=== PATIENT | female | born 1970 | race Caucasian/White ===

== ENCOUNTER 2020-04-03 18:39 | Emergency (ER) | payer OTHER ==
[~2020-04-03] VITALS: Ht 162.6 cm; Wt 71.2 kg
[2020-04-03 18:53] VITALS: BP_SYST 196
--- NOTE | 2020-04-03 18:53 | NUR ---
Patient to ER tent for evaluation
--- NOTE | 2020-04-03 18:55 | NUR ---
Patient accompanied by from home c/o of posterior headache, dizziness and nausea s/p trip and fall from house dog. Denies any loss of consciousness. Denies any use of blood thinners. Pain 09/19.
--- NOTE | 2020-04-03 19:32 | NUR ---
JOSSIE Lopez at Tent examining patient.
[2020-04-03 19:49] VITALS: BP_SYST 196
--- NOTE | 2020-04-03 19:49 | NUR ---
Patient left without discharge paper.
== END 2020-04-03 19:49 | disposition home or self-care (01) ==
LOC: SED 18:39
DX: S00.83XA Contusion of other part of head, initial encounter (principal); I10 Essential (primary) hypertension; Z88.0 Allergy status to penicillin; W01.198A Fall on same level from slipping, tripping and stumbling with subsequent striking against other object, initial encounter; Y93.89 Activity, other specified; Y92.89 Other specified places as the place of occurrence of the external cause; Y99.8 Other external cause status
CPT/HCPCS: 99281